=== PATIENT | female | born 1975 | race Hispanic/Latino ===

== ENCOUNTER 2017-04-13 19:41 | Emergency (ER) | payer OTHER ==
[~2017-04-13 19:41] MED LIST: CARBAMAZEPINE300 MG PO; LINZESS145 MCG PO; REQUIP1 MG PO; RESTORIL30 MG PO; SYNTHROID0.025 MG PO; TEGRETOL-XR200 MG PO; ZYPREXA7.5 MG PO
--- NOTE | 2017-04-13 20:12 | ED GENERAL ADULT ---
History of Present Illness General Chief Complaint: General Adult Stated Complaint: BILATERAL PEDAL EDEMA, X 1 WEEK Source: patient (numbness last on) Exam Limitations: no limitations Vital Signs & Intake/Output Vital Signs & Intake/Output Vital Signs Date Time Temp Pulse Resp B/P B/P Pulse O2 O2 Flow FiO2 Mean Ox Delivery Rate 04/13 2108 98 Room Air 04/13 2108 98.0 88 20 127/86 98 Room Air ED Intake and Output 04/14 0000 04/13 1200 Intake Total Output Total Balance Patient 115 lb Weight Allergies Coded Allergies: MDX - Atkinson (UNKNOWN 11/12/13) MDX - Loperamide (UNKNOWN 11/21/13) MDX - Perphenazine (UNKNOWN 11/21/13) MDX - Prochlorperazine (UNKNOWN 11/21/13) MDX - Divalproex (From Depakote) ("EXACERABTES HER EMOTIONS" 11/21/13) MDX - Divalproex Sodium (From Depakote) ("EXACERABTES HER EMOTIONS" 11/21/13) Reconcile Medications Carbamazepine 300 MG CPMP.12HR 300 MG PO DAILY BIPOLAR (Reported) Carbamazepine (Tegretol XR) 200 MG TAB.ER.12H 200 MG PO DAILY BIPOLAR ( Reported) Lamotrigine 200 MG TABLET SEIZURES (Reported) Levothyroxine (Synthroid) 0.025 MG TAB 0.088 MG PO DAILY HYPOTHYROID ( Reported) Levothyroxine Sodium (Tirosint) 88 MCG CAPSULE DIABETES (Reported) Linaclotide (Linzess) 145 MCG CAPSULE 145 MG PO DAILY IBS (Reported) Meloxicam (Mobic) 15 MG TABLET 1 TAB PO DAILY PRN pain Norethindrone (Rere) 0.35 MG TABLET 1 TAB PO DAILY CONTROL (Reported) Olanzapine (Zyprexa) 7.5 MG TAB 7.5 MG PO DAILY MOOD DISORDER (Reported) Quetiapine Fumarate (Seroquel XR) 400 MG TAB.ER.24H 1 TAB PO QPM DEPRESSION ( Reported) ROPINIROLE HCL (Requip) 1 MG TABLET 1 TAB PO QPM RESTLESS LEGS (Reported) Ropinirole HCl 1 MG TABLET 1 TAB PO QPM RESTLESS LEGS (Reported) Temazepam (Restoril) 30 MG CAP 1 CAP PO QPM INSOMNIA (Reported) Triage Note: PER PT BLE SWELLING X 2 WEEKS DID NOT SEEPMD. NO CP OCCAS SOB Triage Nurses Notes Reviewed? yes Onset: Abrupt Duration: day(s): Timing: recent history : No Patient currently breastfeeds: No HPI: 04/13/17 42-year-old female presents to the emergency department with bilateral lower extremity swelling. The patient states that she's had intermittent episodes of this in the past. She denies any difficulty breathing. The onset of the symptoms was abrupt, the duration was just today, the severity is significant; as her symptoms required her to come to the emergency department for care. She is on Requip. Past History Travel History Traveled to [place] past 21 day No Medical History Any Pertinent Medical History? see below for history Neurological: NONE EENT: NONE Cardiovascular: NONE Respiratory: NONE Gastrointestinal: NONE Hepatic: NONE Renal: NONE Musculoskeletal: NONE Psychiatric: ANXIETY, BIPOLAR Endocrine: THYROID Influenza Vaccine: 10/25/08 Surgical History Surgical History: non-contributory Psychosocial History What is your primary language Romanian Tobacco Use: Never used Family History Hx Contributory? No Review of Systems Review of Systems Constitutional: Denies: fever. EENTM: Denies: visual changes. Respiratory: Denies: short of breath. Cardiovascular: Denies: chest pain. GI: Denies: abdominal pain. Genitourinary: Reports: no symptoms. Musculoskeletal: Reports: joint swelling. Skin: Denies: rash. Neurological/Psychological: Reports: no symptoms. Hematologic/Endocrine: Reports: no symptoms. Immunologic/Allergic: Reports: no symptoms. Physical Exam Physical Exam General Appearance: well developed/nourished, alert, awake, anxious, mild distress Head: atraumatic, normal appearance Eyes: Bilateral: normal appearance, PERRL, EOMI. Ears, Nose, Throat: normal pharynx, normal ENT inspection, hearing grossly normal Neck: normal inspection, supple, full range of motion Respiratory: normal breath sounds, chest non-tender, no respiratory distress Cardiovascular: regular rate/rhythm, edema Peripheral Pulses: 4+ dorsalis pedis (R), 4+ dorsalis pedis (L) Back: normal range of motion Extremities: pedal edema, swelling, tenderness Neurologic/Psych: no motor/sensory deficits, awake, alert, oriented x 3 Skin: intact, normal color, warm/dry Core Measures ACS in differential dx? No CVA/TIA Diagnosis: No Severe Sepsis Present: No Septic Shock Present: No Progress Differential Diagnoses I considered the following diagnoses in my evaluation of the patient: [DVT, CHF, , adverse drug reaction, dependent edema] Plan of Care: Orders Procedure Date/time Status Add-on Test (ER Only) 04/13 2219 Active Add-on Test (ER Only) 04/13 2031 Active TSH REFLEX 04/13 2003 Complete TROPONIN LEVEL 04/13 2003 Complete D-DIMER 04/13 2003 Complete COMPREHENSIVE METABOLIC PANEL 04/13 2003 Complete CBC WITHOUT DIFFERENTIAL 04/13 2003 Complete B-TYPE NATRIURETIC PEP (BNP) 04/13 2003 Complete TOTAL TRIODOTHYROXINE 04/13 2000 Complete LYME TITRE 04/13 2000 Active HUMAN BETA HCG SCREEN 04/13 2000 Complete FREE T4 04/13 2000 Complete Laboratory Tests 04/13/171999: Anion Gap 10, Estimated GFR > 60, BUN/Creatinine Ratio 17.1, Glucose 92, Calcium 9.3, Total Bilirubin 0.6, AST 24, ALT 38, Alkaline Phosphatase 71, Troponin I < 0.01, Lms-I-Bjxcyvhmwul Pept 51.7, Total Protein 6.8, Albumin 4.2, Globulin 2.6, Albumin/Globulin Ratio 1.6, Free T4 0.97, Total T3 1.04, TSH &T3 &Free T4 Intrp 0.029 L, Total Beta HCG NEGATIVE, D-Dimer High Sensitivty < 200, CBC w Diff NO MAN DIFF REQ, RBC 3.98 L, MCV 91.7, MCH 31.0, RDW 13.4, MPV 6.9 L, Gran % 58.0 , Lymphocytes % 27.7, Monocytes % 8.8, Eosinophils % 5.0, Basophils % 0.5, Absolute Granulocytes 3.7, Absolute Lymphocytes 1.8, Absolute Monocytes 0.6, Absolute Eosinophils 0.3, Absolute Basophils 0, PUBS MCHC 33.8, Lyme Disease Antibody Pending Initial ED EKG: none Departure Departure Disposition: HOME OR SELF CARE Condition: Stable Clinical Impression Primary Impression: Dependent edema Secondary Impressions: Adverse drug reaction Referrals: HIRA SAWYER MD (PCP/Family) Departure Forms: Customer Survey General Discharge Information Prescriptions: Current Visit Scripts Meloxicam (Mobic) 1 TAB PO DAILY PRN pain #10 TAB Comments The patient has dependent edema, ultrasound was negative for DVT, labs essentially unremarkable. She is on Requip and this can cause edema. She was instructed to elevate her legs. Follow-up with her doctor on Monday. Discuss adverse effects of medications. PATIENT: GLENIS BACK PRESENT AGE: 42 PATIENT ACCOUNT NO: [id number] : 73 LOCATION: [facility] ORDERING PHYSICIAN: RADHA MURILLO DO SERVICE DATE: 04/13/17 EXAM TYPE: US - US-EXT BILAT VENOUS DOPPLER EXAMINATION: US TRIPLEX OF LOWER EXTREMITIES, BILATERAL CLINICAL INFORMATION: Lower extremity edema. Swelling. COMPARISON: None TECHNIQUE: Color-flow triplex imaging with spectral analysis and compression Doppler were performed on the lower extremities. FINDINGS: Respiratory variation, normal compression and augmented flow are noted throughout the lower extremities. The visualized common femoral vein, superficial femoral vein, profunda femoral vein, popliteal vein and midcalf peroneal and posterior tibial venous segments show no evidence of deep venous thrombosis. There is no Augustine's cyst. IMPRESSION: Normal triplex scan without evidence of deep venous thrombosis involving the lower extremities. DICTATED BY: ANJUM GUTIERREZ MD DATE/TIME DICTATED:04/13/172138 BIZTALK DEVELOPER:RICHA DATE/TIME TRANSCRIBED:04/13/172138 CONFIDENTIAL, DO NOT COPY WITHOUT APPROPRIATE AUTHORIZATION. <Electronically signed in Other Vendor System> SIGNED BY: ANJUM GUTIERREZ MD 04/13/17 6486 Critical Care Note Critical Care Note Critical Care Time: non-applicable
[2017-04-13 20:14] LABS: ABSOLUTE BASOPHIL COUNT 0 /CUMM (0.0-0.2); ABSOLUTE EOSINOPHIL COUNT 0.3 /CUMM (0.0-0.7); ABSOLUTE GRANULOCYTE CT 3.7 /CUMM (1.4-6.5); ABSOLUTE LYMPH COUNT 1.8 /CUMM (1.2-3.4); ABSOLUTE MONOCYTE COUNT 0.6 /CUMM (0.10-0.60); BASOPHIL % 0.5 % (0.0-2.0); HEMATOCRIT 36.5 % (37-47); MEAN CORPUSCULAR HGB CONC 33.8 G/DL (33.0-37.0); MEAN CORPUSCULAR VOLUME 91.7 FL (81.0-99.0); MEAN PLATELET VOLUME 6.9 FL (7.4-10.4); PLATELET COUNT 261 /CUMM (130-400); RBC DISTRIBUTION WIDTH 13.4 % (11.5-14.5); RED BLOOD CELL CT 3.98 /CUMM (4.20-5.40); WHITE BLOOD CELL COUNT 6.4 /CUMM (4.8-10.8)
[2017-04-13 21:08] VITALS: BP 127/86
[2017-04-13] MEDS ORDERED: LAMOTRIGINE200 M2 (21:18)
[2017-04-13] MEDS ORDERED: SEROQUEL XR400 M1 PO (21:19)
[2017-04-13] MEDS ORDERED: ROPINIROLE HCL1 MG PO (21:19)
[2017-04-13] MEDS ORDERED: CAMILA0.35 M1 PO (21:20)
[2017-04-13] MEDS ORDERED: TIROSINT88 MC1 (21:20)
--- NOTE | 2017-04-13 21:44 | ULTRASOUND REPORT ---
EXAMINATION: US TRIPLEX OF LOWER EXTREMITIES, BILATERAL CLINICAL INFORMATION: Lower extremity edema. Swelling. COMPARISON: None TECHNIQUE: Color-flow triplex imaging with spectral analysis and compression Doppler were performed on the lower extremities. FINDINGS: Respiratory variation, normal compression and augmented flow are noted throughout the lower extremities. The visualized common femoral vein, superficial femoral vein, profunda femoral vein, popliteal vein and midcalf peroneal and posterior tibial venous segments show no evidence of deep venous thrombosis. There is no Augustine's cyst. IMPRESSION: Normal triplex scan without evidence of deep venous thrombosis involving the lower extremities.
[2017-04-13] MEDS ORDERED: MOBIC15 M1 PO (22:27)
== END 2017-04-13 22:33 ==
LOC: ERH 19:41
PROVIDERS: Emergency Medicine
DX: R60.9 Edema, unspecified (principal); T50.995A Adverse effect of other drugs, medicaments and biological substances, initial encounter
CPT/HCPCS: 86618; 93970